=== PATIENT | male | born 1990 | race Caucasian/White ===

== ENCOUNTER → 2022-08-30 17:03 | Outpatient (CLI) | payer OTHER, SELFPAY ==
--- NOTE | 2022-08-30 | DI.MRI.S_ITS ---
PROCEDURE: MR THORACIC SPINE WO CON INDICATIONS: THORACIC SPINE PAIN TECHNIQUE: Noncontrast sagittal T1 spine echo and T2 fast spin echo, sagittal STIR, and T2 fast spin echo through the thoracic spine. COMPARISON: None. FINDINGS: Image quality: Excellent. Alignment and Curvature: There is normal bony alignment. Bone Marrow: Marrow is of normal overall signal. No acute vertebral body compression fractures. Spinal Cord: Visualized spinal cord is normal in size and signal. Paraspinous Soft Tissues: No paravertebral masses. Miscellaneous: On axial images, central canal and foramina appear widely patent at all scanned levels. IMPRESSION: No thoracic canal stenosis or foraminal stenosis. Normal appearance of spinal cord. Dictated by: Jero Mendez M.D. on 08/31/2022 at 9:26 Approved by: Jero Mendez M.D. on 08/31/2022 at 9:27
== END ==
PROVIDERS: Referring Provider Orthopaedic Surgery; Visit Provider Orthopaedic Surgery
DX: M54.6 Pain in thoracic spine (principal); M54.16 Radiculopathy, lumbar region
CPT/HCPCS: 72146

== ENCOUNTER → 2022-12-12 17:28 | Outpatient (CLI) | payer OTHER, SELFPAY ==
[2022-12-12 18:07] LABS: UR Morphine/Opiate cutoff 300 Positive (Negative); Ur Creatinine Normal (Normal); Ur Specific Gravity Normal (Normal); Urine Amphetamines Positive (Negative); Urine Barbiturates Negative (Negative); Urine Benzodiazepines Negative (Negative); Urine Cocaine Negative (Negative); Urine MDMA Negative (Negative); Urine Methadone Negative (Negative); Urine Methamphetamines Negative (Negative); Urine Oxycodone Negative (Negative); Urine Phencyclidine Negative (Negative); Urine Tetrahydrocannabinol Negative (Negative); Urine Tricyclic Antidepressant Negative (Negative); Urine pH Normal (Normal)
== END ==
PROVIDERS: PCP Family Medicine; Referring Provider Family Medicine; Visit Provider Family Medicine
DX: F90.9 Attention-deficit hyperactivity disorder, unspecified type (principal)
CPT/HCPCS: 80305

== ENCOUNTER → 2023-01-10 14:52 | Outpatient (CLI) | payer OTHER, SELFPAY ==
[2023-01-10 15:27] LABS: UR Morphine/Opiate cutoff 300 Positive (Negative); Ur Creatinine Normal (Normal); Ur Specific Gravity Normal (Normal); Urine Amphetamines Negative (Negative); Urine Barbiturates Negative (Negative); Urine Benzodiazepines Negative (Negative); Urine Cocaine Negative (Negative); Urine MDMA Negative (Negative); Urine Methadone Negative (Negative); Urine Methamphetamines Negative (Negative); Urine Oxycodone Negative (Negative); Urine Phencyclidine Negative (Negative); Urine Tetrahydrocannabinol Negative (Negative); Urine Tricyclic Antidepressant Negative (Negative); Urine pH Normal (Normal)
== END ==
PROVIDERS: PCP Family Medicine; Referring Provider Family Medicine; Visit Provider Family Medicine
DX: F90.9 Attention-deficit hyperactivity disorder, unspecified type (principal)
CPT/HCPCS: 80305

== ENCOUNTER → 2023-06-08 10:16 | Outpatient (CLI) | payer OTHER, SELFPAY ==
[2023-06-08 12:43] LABS: Urine N gonorrhoeae NOT DETECTED
[2023-06-08 12:44] LABS: Urine Chlamydia NOT DETECTED
[2023-06-10 16:24] LABS: Hepatitis B Surface Antigen NEGATIVE s/c (NEGATIVE)
[2023-06-10 17:16] LABS: HIV 1 & 2 Ab/Ag 4th Gen Combo NEGATIVE (NEGATIVE)
[2023-06-11 02:12] LABS: Hepatitis B Core AB w/Reflex Negative (Negative)
[2023-06-11 05:30] LABS: RPR Screen Non Reactive (Non Reactive)
== END ==
PROVIDERS: PCP Family Medicine; Referring Provider Registered Nurse; Visit Provider Registered Nurse
DX: Z71.1 Person with feared health complaint in whom no diagnosis is made (principal)
CPT/HCPCS: 36415; 86592; 86695; 86696; 86704; 87340; 87389; 87491; 87591

== ENCOUNTER → 2024-03-19 13:29 | Outpatient (CLI) | payer OTHER, SELFPAY ==
[2024-03-19 14:40] LABS: Hematocrit 46.8 % (41-53); Hemoglobin 16.3 g/dL (13.5-17.5); Mean Corpuscular HGB Conc 34.9 % (30-36); Mean Corpuscular Volume 88.8 fL (80-100); Platelet Count 207 X10^3/uL (150-400); Red Blood Cell Count 5.28 X10^6/uL (4.5-5.9); Red Cell Distribution Width 12.9 % (11.6-14.8); White Blood Cell Count 7.3 X10^3/uL (4.5-11.0)
[2024-03-19 22:48] LABS: Neutrophils Absolute Manual 4161 /uL (3000-5900); RBC Morphology Normal Morphology; Total Cells Counted 100
== END ==
LOC: LAB 13:39
PROVIDERS: PCP Family Medicine; Referring Provider Physician Assistant; Visit Provider Physician Assistant
DX: Z51.81 Encounter for therapeutic drug level monitoring (principal)
CPT/HCPCS: 36415; 85025

== ENCOUNTER → 2024-04-17 14:19 | Outpatient (CLI) | payer OTHER, SELFPAY ==
[2024-04-17 15:41] LABS: Add Manual Diff / Slide Review NO; Basophils Absolute Auto 0 /uL (0-100); Basophils Percent Auto 0.4 % (0-2); Eosinophils Absolute Auto 100 /uL (0-450); Eosinophils Percent Auto 1.2 % (2-4); Hemoglobin 16.1 g/dL (13.5-17.5); Lymphocytes Absolute Auto 1700 /uL (1100-4500); Lymphocytes Percent Auto 21.9 % (25-40); Mean Corpuscular Volume 88.8 fL (80-100); Monocytes Absolute Auto 900 /uL (0-900); Monocytes Percent Auto 11.2 % (3-14); Neutrophils Absolute Auto 5100 /uL (1500-7000); Neutrophils Percent Auto 65.3 % (50-75); Platelet Count 218 X10^3/uL (150-400); Red Blood Cell Count 5.18 X10^6/uL (4.5-5.9); Red Cell Distribution Width 12.8 % (11.6-14.8); White Blood Cell Count 7.8 X10^3/uL (4.5-11.0)
[2024-04-17 15:58] LABS: Alanine Aminotransferase 38 IU/L (<50)
== END ==
PROVIDERS: PCP Family Medicine; Referring Provider Physician Assistant; Visit Provider Physician Assistant
DX: Z51.81 Encounter for therapeutic drug level monitoring (principal)
CPT/HCPCS: 36415; 84460; 85025

== ENCOUNTER → 2024-05-22 16:06 | Outpatient (CLI) | payer OTHER, SELFPAY ==
[2024-05-22 16:47] LABS: Hematocrit 45.6 % (41-53); Mean Corpuscular Hemoglobin 30.8 PG (26-34); Mean Corpuscular Volume 88.1 fL (80-100); Platelet Count 214 X10^3/uL (150-400); Red Blood Cell Count 5.18 X10^6/uL (4.5-5.9); White Blood Cell Count 7.9 X10^3/uL (4.5-11.0)
[2024-05-22 17:21] LABS: Alanine Aminotransferase 40 IU/L (<50); Aspartate Aminotransferase 37 IU/L (17-59); Estimated Glomerular Filt Rate > 60 mL/min (>60)
[2024-05-22 17:27] LABS: Neutrophils Absolute Manual 4424 /uL (3000-5900); RBC Morphology Normal Morphology; Total Cells Counted 100
[2024-05-23 20:04] LABS: Hep C Virus Ab w/Reflex Quant NEGATIVE s/c (NEGATIVE)
== END ==
LOC: LAB 16:08
PROVIDERS: PCP Family Medicine; Referring Provider Physician Assistant; Visit Provider Physician Assistant
DX: Z11.59 Encounter for screening for other viral diseases (principal); Z51.81 Encounter for therapeutic drug level monitoring
CPT/HCPCS: 36415; 82565; 84450; 84460; 85025; 86803; 87535

== ENCOUNTER 2025-08-16 19:57 | Emergency (ER) | payer MEDICAID, SELFPAY ==
[2025-08-16 20:09] VITALS: BP 145/82; PULSE 103; RESP 16; TEMP 36.6; O2SAT 98; BMI 31.5
--- NOTE | 2025-08-16 20:13 | DI.RAD.S_ITS ---
PROCEDURE: XR SCAPULA RT INDICATIONS: pain TECHNIQUE: 2 views of the scapula were acquired. COMPARISON: None. FINDINGS: Bones: No fractures or dislocations. No suspicious bony lesions. Visualized ribs appear intact. Soft tissues: Overlying soft tissues appear normal. IMPRESSION: No acute bony abnormality. Approved by: Linda Trejo M.D.,Ph.D. on 08/16/2025 at 21:02
--- NOTE | 2025-08-16 20:13 | DI.RAD.S_ITS ---
PROCEDURE: XR RIBS RT MIN 3V W CXR 1V INDICATIONS: pain TECHNIQUE: 4 views of the ribs were acquired, along with a single view chest. COMPARISON: None. FINDINGS: Surgical changes and devices: None. Bones and chest wall: No fractures or dislocations. No suspicious bony lesions. Overlying soft tissues appear unremarkable. Lungs and pleura: No pleural effusions or pneumothorax. Lungs appear clear. Mediastinum: Mediastinal contours appear normal. Heart size is normal. IMPRESSION: No acute displaced rib fracture or pneumothorax. Approved by: Linda Trejo M.D.,Ph.D. on 08/16/2025 at 21:03
--- NOTE | 2025-08-16 21:54 | ED.BACK ---
HPI - Back Pain/Injury General Chief Complaint: Back Pain/Injury Stated Complaint: Rib pain, R side Time Seen by Provider: 08/16/25 21:54 Source: patient, RN notes reviewed and old records reviewed Mode of arrival: Family Vehicle Limitations: no limitations History of Present Illness HPI Narrative: 35-year-old male history of hypertension, depression, ADD, chronic right thoracic back pain with some radiation down his right arm. Patient states he has had issues for several years he relates it to using a poon fiddle and bowing. He denies any recent trauma but notes that he saw physical therapy today was performing some of the exercises that he was told to do if he had increased pain and this rapidly worsened his pain he has increased pain in the thoracic area in his back radiating down his right arm. He notes little bit of tingling in his fingers. No difficulty with mineral mixer or dropping objects. Patient states he is currently taking meloxicam, takes diclofenac has been taking Flexeril. Has not had anything recently this evening he is also on gabapentin 100 mg in the evening he has been reluctant to increase his dosage. He follows with Valerie Lo as his primary care physician. Follows with PT in the [place] area. Patient lives locally in [place]. Related Data Home Medications ?Medication ?Instructions ?Recorded ?Confirmed citalopram 40 mg tablet 40 mg PO DAILY 12/12/22 12/12/22 dextroamphetamine-amphetamine 30 30 mg PO TID 12/12/22 12/12/22 mg tablet (Adderall) diclofenac sodium 1 % topical gel 2 g topical TID 12/12/22 12/12/22 ibuprofen 200 mg tablet 400 mg PO Q6H 12/12/22 12/12/22 melatonin PO PRN 12/12/22 12/12/22 meloxicam submicronized 10 mg 10 mg PO DAILY 12/12/22 12/12/22 capsule methylphenidate HCl 54 mg 54 mg PO BID 12/12/22 12/12/22 tablet,extended release 24 hr (Concerta) Previous Rx's ?Medication ?Instructions ?Recorded cyclobenzaprine 10 mg tablet 10 mg PO TID PRN muscle spasm #10 08/16/25 tabs Allergies Allergy/AdvReac Type Severity Reaction Status Date / Time No Known Drug Allergies Allergy Unverified 08/16/25 20:10 Review of Systems Review of Systems ROS Unobtainable: All systems reviewed & are unremarkable except as noted in HPI and below Patient History Medical History Depression (~2005) Shoulder pain (~2018) Chronic back pain (~2020) Low testosterone (~2020) Major depression, single episode ADHD Surgical History Anesthesia History of tonsillectomy (~2007) Finger fracture, right (~2011) Family History Father Hypertension Mental health problem Mother Mental health problem Sister Mental health problem Grandmother Breast cancer Social History Smoking Status: Never smoker Smoking Status: Never smoker Exam Narrative Exam Narrative: GENERAL: Alert and oriented x three, male in [id number] distress HEENT: Head normocephalic, atraumatic, EOMI, pupils reactive, face symmetric, moist mucous membranes NECK: Supple, full range of motion, no cervical vertebral tenderness CARDIOVASCULAR: Regular rate and rhythm without murmurs, rubs or gallops. RESPIRATORY: Breath sounds equal bilaterally, no wheezes rales or rhonchi. ABDOMEN: Soft, nontender. Normoactive bowel sounds all 4 quadrants. No guarding or rebound, rigidity, no mass : No CVA tenderness BACK: No cervical, thoracic or lumbar vertebral point tenderness. Patient has increased pain at the area inferior to the scapula. Patient has decreased range of motion. Patient has sensation to light touch in bilateral upper extremities. Muscle strength is 5/5 in bilateral upper extremities with equal finance advisor bilaterally. 2+ radial pulses bilaterally. No warmth erythema, no cyanosis or other skin changes no swelling of bilateral upper extremities. Sensation is intact in the lower extremities. EXTREMITIES: Normal range of motion, no clubbing or edema. Neurovascularly intact NEUROLOGICAL: Cranial nerves II through XII grossly intact. Moving all extremities SKIN: Warm, dry, no petechiae, no rashes or lesions. Initial Vital Signs Initial Vital Signs: Vital Signs Temperature 98 F 08/16/25 20:09 Pulse Rate 103 H 08/16/25 20:09 Respiratory Rate 16 08/16/25 20:09 Blood Pressure 145/82 H 08/16/25 20:09 Pulse Oximetry 98 08/16/25 20:09 Oxygen Delivery Method Room Air 08/16/25 20:09 Course Orders Ordered: Discontinued Medications Cyclobenzaprine HCl (Cyclobenzaprine 10 Mg Tablet) 10 mg PO NOW ONE Stop: 08/16/25 22:24 Last Admin: 08/16/25 22:28 Dose: 10 mg Documented By: SHOBHA Ketorolac Tromethamine (Ketorolac 30 Mg/Ml Vial) 30 mg IM NOW ONE Stop: 08/16/25 22:24 Last Admin: 08/16/25 22:28 Dose: 30 mg Documented By: SHOBHA Vital Signs Vital signs: Vital Signs - 8 hr 08/16/25 20:09 08/16/25 22:04 Temperature 98 F Pulse Rate 103 H 96 H Respiratory Rate 16 18 Blood Pressure 145/82 H 128/79 Pulse Oximetry 98 100 Oxygen Delivery Method Room Air Room Air MDM - Back Pain/Injury MDM Narrative Medical decision making narrative: Scapula x-ray right it shows no acute abnormality Right rib fracture shows no acute displaced rib, fracture or pneumothorax. Exam patient has midthoracic back pain inferior to the scapular region no recent trauma this has been longstanding for over a year increased after going to physical therapy today and using a ball and pushing that area of pain with a ball against a wall. Patient has a increase in pain with this which has been persistent. He notes some mild paresthesias but has sensation to light touch otherwise neurovascularly intact with normal strength. Patient given a dose of Toradol here in the department as well as muscle relaxer which he has been taking. He notes he is about to run out we will give a prescription. Patient is to call his primary care tomorrow for follow up Discharge Plan Departure Patient Disposition: Home Clinical Impression: Back pain, thoracic, Radiculopathy affecting upper extremity Instructions: DI for Thoracic Back Pain Activity Restrictions/Additional Instructions: Follow up with your physician call tomorrow. Decrease your activity for now. You can increase it as tolerated. Continue your home pain medications as prescribed. If you are having persistent symptoms I would talk with your physician about increasing your gabapentin, you can increase this up to 3 times daily. Prescription for Flexeril/cyclobenzaprine was sent to the [facility] in [place]. Please return if you have fevers, new weakness, loss of sensation, inability lift or move your arm, passing out, rapidly worsening symptoms or other new or concerning changes. Prescriptions: New cyclobenzaprine 10 mg tablet 10 mg PO TID PRN (Reason: muscle spasm) Qty: 10 0RF No Action citalopram 40 mg tablet 40 mg PO DAILY methylphenidate HCl [Concerta] 54 mg tablet extended release 24hr 54 mg PO BID Patient Comments: only takes on weekdays Rx Instructions: only takes on week days dextroamphetamine-amphetamine [Adderall] 30 mg tablet 30 mg PO TID Patient Comments: only takes on weekends Rx Instructions: administer doses at least 4-6 hours apart. only takes on weekends. meloxicam submicronized 10 mg capsule 10 mg PO DAILY diclofenac sodium 1 % gel 2 g topical TID Rx Instructions: apply to single elbow, wrist or hand; for hand includes palm/fingers/back of hand melatonin PO PRN ibuprofen 200 mg tablet 400 mg PO Q6H Referrals: Valerie Lo PA-C [Primary Care Provider, Family Practice] Stand Alone Forms: Patient Portal/API
[2025-08-16 22:04] VITALS: BP 128/79; PULSE 96; RESP 18; O2SAT 100
[2025-08-16] MEDS: KETOROLAC 30 MG/ML VIAL IM (22:28)
[2025-08-16] MEDS: CYCLOBENZAPRINE 10 MG TABLET PO (22:28)
== END 2025-08-16 22:39 | disposition home or self-care (01) ==
PROVIDERS: Emergency Provider Emergency Medicine
DX: M54.6 Pain in thoracic spine (principal); M54.10 Radiculopathy, site unspecified
CPT/HCPCS: 71101; 73010; 96372; 99283; J1885